=== PATIENT | male | born 1970 | race Caucasian/White ===

== ENCOUNTER → 2021-11-09 | Day surgery (SDC) | payer OTHER ==
[~2021-11-09] VITALS: Ht 182.9 cm; Wt 108.9 kg
[~2021-11-09] MED LIST: ASPIRIN325 PO; ATENOLOL 25 MG25 M1 PO; ATORVASTATIN CA20 MG PO; CHILDREN'S ASPI81 M1 PO; DICYCLOMINE HCL20 MG PO; EFFIENT10 MG PO; LISINOPRIL2.5 MG PO; METOPROLOL SUCC25 M1 PO; NITROSTAT0.4 M1 SUBLING; NITROSTAT0.4 MG SUBLING; NORCO5 PO; OMEPRAZOLE40 MG PO; REPATHA SU140 MG/1 M SUBQ; TRIAMTERENE/HCT1 CA1 PO
--- NOTE | ~2021-11-09 | O ---
[facility] [place] [address] OPERATIVE REPORT Name: SHAWNEE LLAMAS Room #: REG [facility] M.R.#: [id number] Admission: 11/09/21 Attend Phys: Ken Mcdonald MD Discharge: Date of : 66 Report #: [id number] THIS REPORT FOR: cc: SHARAD GARCIA Physician not on staff Ken Mcdonald MD ~ DATE OF SERVICE: 11/09/2021 PREOPERATIVE DIAGNOSIS: Right knee posterior horn medial meniscus tear. POSTOPERATIVE DIAGNOSES: 1. Right knee posterior horn medial meniscus tear. 2. 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 3. 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 PROCEDURES 1. Right knee arthroscopy with partial medial meniscectomy. 2. Chondroplasty of medial femoral condyle. SURGEON: Ken Mcdonald MD ADJUNCT PHLEBOTOMY INSTRUCTOR: Kamini Meneses PA-C ANESTHESIA: LMA. TOURNIQUET TIME: 15 minutes. ESTIMATED BLOOD LOSS: 5 mL. COMPLICATIONS: None. SPECIMENS: None. CONDITION UPON LEAVING THE OR: Stable. INDICATIONS FOR PROCEDURE: The patient is a 51-year-old gentleman with right-sided medial knee pain and catching. Had an MRI scan, was found to have a tear of the posterior horn of the medial meniscus as well as chondromalacia of the medial femoral condyle. After discussion with him, he elected for right knee arthroscopy with partial medial meniscectomy and debridement as needed. DESCRIPTION OF PROCEDURE: Risks, benefits, alternatives, complications were discussed in detail with the patient including but not limited to risk of anesthesia, risk of damage to nerves, arteries, blood vessels, risk for infection, bleeding, risk for continued knee pain and need for reoperation. Informed consent was obtained from the patient. Right knee was appropriately [address] [address] OPERATIVE REPORT Name: SHAWNEE LLAMAS [facility] [place] Room #: REG SD Cammie#: [id number] Admission: 11/09/21 Attend Phys: Ken Mcdonald MD Discharge: Date of : 66 Report #: [id number] marked in the preoperative holding area. IV Ancef was given for preoperative antibiotics. He was brought to the operating room and placed in the supine position on the operating table. LMA anesthesia was induced without complication. Tourniquet was placed on the right thigh. Right lower extremity was prepped and draped in normal sterile fashion. Timeout was performed properly identifying the patient, procedure as well as the instrumentation. All in the operating room in agreement. Right lower extremity was exsanguinated, tourniquet was inflated. Tourniquet time was 15 minutes. Standard anterolateral portal was established with an 11 blade through the skin. Arthroscope was introduced into the patellofemoral compartment. Diagnostic arthroscopy was undertaken. Patellofemoral compartment was visualized and found to have grade 3 chondromalacia of the patella as well as the trochlear groove. Medial gutter was visualized and found to be without pathology. Medial compartment was visualized and a medial portal was established under arthroscopic visualization. Probe was introduced in the medial compartment and there was noted to be a complex tear of the posterior horn of the medial meniscus. This was trimmed back to a stable rim with an oscillating shaver. Also noted was a large area of grade 4 chondromalacia of the medial femoral condyle with several unstable cartilaginous flaps. These were smoothed back with an arthroscopic shaver. Notch was visualized and found to have an intact anterior cruciate ligament. Lateral compartment was visualized and found to have an intact lateral meniscus. There was a smaller area of grade 4 chondromalacia on the medial aspect of the lateral tibial plateau. Scope was placed back into the patellofemoral compartment and all fluid was allowed to drain from the knee. Knee was injected with 10 mL of 0.5% Marcaine. Incision was closed with 3-0 nylon. Soft dressing of Adaptic, 4 x 4s, Webril, Vicente wrap were applied. The patient tolerated this procedure well and went to recovery room under care of anesthesia postoperatively. By: [id number] Ken Mcdonald MD /nt
[2021-11-09 11:00] LABS: CALCIUM 8.9 mg/dL (8.5-10.1); CREATININE 0.9 mg/dL (0.7-1.3); POTASSIUM 4.5 mmol/L (3.5-5.1)
[2021-11-09 12:26] VITALS: BP 143/94
[2021-11-09 13:08] VITALS: BP 143/94
== END | disposition home or self-care (01) ==
LOC: OR 08:31
PROVIDERS: ATTEND Orthopaedic Surgery
DX: M25.561 Pain in right knee (principal); M23.221 Derangement of posterior horn of medial meniscus due to old tear or injury, right knee; E78.00 Pure hypercholesterolemia, unspecified; I25.2 Old myocardial infarction; F17.220 Nicotine dependence, chewing tobacco, uncomplicated; Z98.890 Other specified postprocedural states; Z79.899 Other long term (current) drug therapy; Z79.82 Long term (current) use of aspirin; Z20.822 Contact with and (suspected) exposure to COVID-19; Z96.652 Presence of left artificial knee joint
CPT/HCPCS: 50010; 50101; 50405; 56526; 57103; 57180; 58577; 58589; 62110; 62900; 70005